=== PATIENT | female | born 1995 ===

== ENCOUNTER 2018-02-12 18:00 | Emergency (ER) | payer BC, OTHER ==
[2018-02-12 18:09] VITALS: BP 124/71
[2018-02-12] MEDS ORDERED: Tetan/Diph/Pertus SYR(Tdap)* 0.5 ML SYR(BOOSTRIX) use SYR IM ONE (18:48)
[2018-02-12] MEDS ORDERED: Ibuprofen TAB* 600 MG PO ONE (19:24)
--- NOTE | 2018-02-12 19:32 | ED ---
Lower Extremity - HPI Summary HPI Summary: Patient presents with left lateral foot and 5th toe pain status post injury prior to arrival. She reports she was dismounting from the balance beam when she struck her foot against a beam and then landed. Her toe has been oozing and bleeding in 2 areas and is painful to move and bear weight. She was given crutches by her application trainer. She is still able to move her ankle and knee and hip without difficulty and denies any other injuries as a result of this event. She is unsure of her last tetanus vaccine. No known history of MRSA or hemophilia. She has not had any medication prior to arrival. Last was her period last week. Takes oral control and has not missed any doses. Denies concern for . - History of Current Complaint Chief Complaint: UCLaceration Stated Complaint: TOE LAC Time Seen by Provider: 02/12/18 18:48 Hx Obtained From: Patient, Family/Behavioral Medical Director - female roommate Hx Last Menstrual Period: 02/05/18 Pain Intensity: 6 - Allergies/Home Medications Allergies/Adverse Reactions: Allergies Allergy/AdvReac Type Severity Reaction Status Date / Time Penicillins Allergy Intermediate Hives Verified 02/12/18 18:09 Home Medications: Home Medications Norgestrel-Ethinyl Estradiol [Kpd-Rdiowrty-14 Tablet] 1 each PO DAILY WITH MEAL 02/12/18 [History Confirmed 02/12/18] PMH/Surg Hx/FS Hx/Imm Hx Previously Healthy: Yes Endocrine/Hematology History: Denies: Hx Anticoagulant Therapy, Hx Blood Disorders, Hx Diabetes, Hx Thyroid Disease, Autoimmune Disease Cardiovascular History: Denies: Hx Hypertension, Hx Pacemaker/ICD Respiratory History: Denies: Hx Asthma, Hx Chronic Obstructive Pulmonary Disease (COPD) GI History: Denies: Hx Ulcer History: Denies: Hx Renal Disease Sensory History: Denies: Hx Hearing Aid Psychiatric History: Denies: Hx Panic Disorder - Surgical History Surgery Procedure, Year, and Place: Rt [facility] -ARTHRSCOPIC. LT [facility] - [facility]- [facility]ON[facility] SURG - Immunization History Immunizations Up to Date: Unable to Obtain/Confirm Infectious Disease History: No Infectious Disease History: Denies: Hx Hepatitis, Hx Human Immunodeficiency Virus (HIV), Hx of Known/ Suspected MRSA, Traveled Outside the [place] in Last 30 Days - Social History Occupation: Student - IC Lives: Dormitory/Roommates Alcohol Use: Weekly Hx Substance Use: No Substance Use Type: Reports: None Hx Tobacco Use: No Smoking Status (MU): Never Smoked Tobacco Review of Systems Constitutional: Negative Positive: no symptoms reported Positive: Arthralgia, Decreased ROM, Edema Skin: Other - lac to toe Positive: Bruising Neurological: Negative Psychological: Normal All Other Systems Reviewed And Are Negative: Yes Physical Exam Triage Information Reviewed: Yes Vital Signs On Initial Exam: Initial Vitals Temp Pulse Resp BP Pulse Ox 99.3 F 86 18 124/71 99 02/12/18 18:05 02/12/18 18:05 02/12/18 18:05 02/12/18 18:05 02/12/18 18:05 Vital Signs Reviewed: Yes Appearance: Positive: Well-Appearing, No Pain Distress, Well-Nourished Skin: Positive: Warm, Skin Color Reflects Adequate Perfusion - Lt toe w/ edema, open skin about the nail (0.25cm x 2mm) and medial surface (0.25cm x 2mm) - oozing serosanginous fluids - no active bleeding at the moment Head/Face: Positive: Normal Head/Face Inspection Eyes: Positive: EOMI ENT: Positive: Hearing grossly normal Respiratory/Lung Sounds: Positive: Breath Sounds Present Cardiovascular: Positive: Pulses are Symmetrical in both Upper and Lower Extremities - cap refill < 2 secs in affected toe and DP + 2. Negative: Leg Edema Left, Leg Edema Right Musculoskeletal: Positive: Pain @ - Lt 5th toe - TTP and pain w/ movement which is limited - otherwise moving toes and ankle w/o difficulty Neurological: Positive: Normal, Sensory/Motor Intact, Alert, Oriented to Person Place, Time, CN Intact II-III Psychiatric: Positive: Normal Diagnostics - Vital Signs Vital Signs Temp Pulse Resp BP Pulse Ox 02/12/18 18:05 99.3 F 86 18 124/71 99 - Laboratory Lab Statement: Any lab studies that have been ordered have been reviewed, and results considered in the medical decision making process. Lower Extremity Course/Dx - Course Course Of Treatment: Wet read Lt foot and 5th Lt toe: possible open, non- displaced compression fx of the distal portion of the proximal phalanx of the Lt 5th digit - no displacement, no effusion; soft tissue injury at distal flesh of same digit - no FB observed; Foot w/o fx, dislocation. Wound irrigated and dressed - RICE, POST OP SHOE + CRUTCHES. Close f/u w/ ortho. Explained XR will be read by radiology tomorrow - if no fx, no does not need to continue anbx. - Diagnoses Provider Diagnoses: Fracture of fifth toe, left, open Discharge - Sign-Out/Discharge Documenting (check all that apply): Patient Departure All imaging exams completed and their final reports reviewed: Yes - Discharge Plan Condition: Stable Disposition: HOME Prescriptions: Cephalexin CAP* [Keflex CAP*] 500 mg PO QID #38 cap Patient Education Materials: Crutch Instructions (ED), Toe Fracture (ED), Crush Injury (ED) Forms: *School Release Referrals: Lubna Macario MD [Medical Doctor] - [facility] @ [Outside] Additional Instructions: Call here tomorrow morning to confirm fracture. If toe is not fractured, you may remove dressing and gently wash wound with soap and water, rinse well and pat dry with clean cloth. Reapply triple antibiotic ointment and clean gauze dressing. Continue daily until healed. You may also soak in epsom salt for pain/swelling - rinse well and redress after soak. Follow-up with [facility] later this week. Call tomorrow to schedule appointment. You may also reduce antibiotics from 4 x day to 2 x day. If toe is confirmed as fractured, do not remove dressing until seen by ortho in the next 1-2 days. Call tomorrow to schedule ortho appointment. Contact information provided below. Rest, ice, elevate and avoid weight bearing until cleared by ortho or PCP. * If you develop redness, swelling, streaking, purulent drainage, fevers or chills, seek medical attention sooner or return to the emergency department. *NOTE if you develop allergic reaction to keflex (ie. rash, itching) stop antibiotic and take 50mg of benadryl. If symptoms resolve, notify medical provider you have an allergy to keflex and ask if hey want to see you based on symptoms. If you develop worse symptoms (ie. throat tightness, facial swelling, difficulty breathing or swallowing, vomiting, etc) go to the ED - Billing Disposition and Condition Condition: STABLE Disposition: Home
[2018-02-12] MEDS ORDERED: Cephalexin CAP* 500 MG PO ONE (20:08)
== END 2018-02-12 20:42 | disposition home or self-care (01) ==
LOC: UCEAST 18:00
DX: S92.512B Displaced fracture of proximal phalanx of left lesser toe(s), initial encounter for open fracture (principal); W21.89XA Striking against or struck by other sports equipment, initial encounter; Y93.43 Activity, gymnastics; Y92.9 Unspecified place or not applicable; Z88.0 Allergy status to penicillin
CPT/HCPCS: 90471; 90715; 99214; A9270-GY; G0463